=== PATIENT | female | born 1950 | race Caucasian/White ===

== ENCOUNTER 2020-04-25 13:01 | Outpatient (CLI) | payer MEDICARE, SELFPAY ==
[2020-04-25 16:09] LABS: Alanine Aminotransferase 13 U/L (4-35); Albumin Level 3.6 g/dL (3.5-5.1); Alkaline Phosphatase 101 U/L (38-126); Anion Gap 8 mmol/L (8-16); Aspartate Amino Transferase 21 U/L (14-36); Bilirubin,Total 0.3 mg/dL (0.2-1.3); Blood Urea Nitrogen 32 mg/dL (7-17); Calcium 8.9 mg/dL (8.4-10.2); Carbon Dioxide 26 mmol/L (22-30); Chloride 108 mmol/L (98-107); Cholesterol 249 mg/dL (0-200); Estimated Glomerular Filt Rate 23; Glucose 108 mg/dL (65-105); HDL Direct 42 mg/dL; Potassium 4.6 mmol/L (3.4-5.0); Sodium 142 mmol/L (137-145); Triglycerides 199 mg/dL (<150)
[2020-04-25 16:20] LABS: LDL Cholesterol Direct 157 mg/dL
[2020-04-25 16:24] LABS: Hemoglobin A1C 6.2 % (<5.7)
== END 2020-04-25 13:02 | disposition home or self-care (01) ==
LOC: ANHLAB 13:05
PROVIDERS: PCP Emergency Medicine; Visit Provider Emergency Medicine
DX: R35.0 Frequency of micturition (principal); E78.5 Hyperlipidemia, unspecified; E11.9 Type 2 diabetes mellitus without complications
CPT/HCPCS: 36415; 80053; 80061; 83036; 87086; 87088; 87106; 87186

== ENCOUNTER 2020-05-09 10:41 | Outpatient (CLI) | payer MEDICARE, SELFPAY ==
--- NOTE | ~2020-05-09 | XR_ITS ---
XR abdomen/kub 1V 05/09/2020 10:59 Indication: Kidney stones Procedure: KUB Comparison: No prior studies for comparison. Findings: Bowel gas pattern is nonobstructive. There are surgical changes in the mid lumbar spine. Mo derate lumbar spondylosis. There is a round calcification overlying the L5 transverse process on the left, likely a phlebolith or lymph node calcification rather than ureteral stone. There is an oval ca lcific density overlying the right ilium, likely bowel content or appendicolith. Moderate degenerativ e changes of the hips. No acute osseous abnormality. Impression: 1: No definite nephrolithiasis. No acute abdominal abnormality. Reviewed, dictated and finalized at location B. Impression: 1: No definite nephrolithiasis. No acute abdominal abnormality.
== END 2020-05-09 10:42 | disposition home or self-care (01) ==
PROVIDERS: PCP Emergency Medicine; Visit Provider Urology
DX: Z87.442 Personal history of urinary calculi (principal)
CPT/HCPCS: 74018

== ENCOUNTER → 2020-05-30 09:43 | Outpatient (CLI) | payer MEDICARE, SELFPAY ==
--- NOTE | ~2020-05-30 | XR_ITS ---
XR lumbar spine 6V w bending DATE: 05/30/2020 10:35 INDICATION: Low back pain TECHNIQUE: Standing AP, neutral lateral and flexion and extension lateral and coned lateral lumbosacr al views. Bilateral supine oblique views. COMPARISON: 06/09/2020 CT lumbar spine FINDINGS: There is severe degenerative disc disease with eburnation, spurring at T10-11. There is mild levoscoliosis of the thoracolumbar spine. There is severe degenerative disc disease with prominent urination, spurring and vacuum phenomenon at L1-2. There is a right L2 pars interarticularis defect. There is grade 1 anterolisthesis at L2-3. There is posterior spinal fusion at L3-4; the hardware appears intact. Moderately severe degenerative disc disease at L3-4. There is anterior fusion at L4-5. There is severe degenerative change at the apophyseal joints. No other fracture or bone destruction is detected. The sacroiliac joints are intact. There is extensive calcification of the abdominal aorta, without apparent aneurysm. IMPRESSION: Status post posterior spinal fusion at L3-4 Severe degenerative disc disease at T10-11 and particularly at L1-2 Moderately severe degenerative disc disease at L3-4 Fusion at L4-5 anteriorly Right L2 pars interarticularis defect with grade 1 anterolisthesis at L2-3 Reviewed, dictated and finalized at location A. [employer] COMM[employer]ICATION[employer] MANAGER
--- NOTE | ~2020-05-30 | XR_ITS ---
EXAMINATION: XR hip RT min 2V DATE: 05/30/2020 10:35 INDICATION: Right hip pain. TECHNIQUE: 2 views of right hip were obtained. COMPARISON: None. FINDINGS: Bone alignment is normal. No fracture. There is moderate right hip osteoarthritis. There ar e changes of posterior fusion procedure in lumbar spine. IMPRESSION: 1. Moderate right hip osteoarthritis. Reviewed, dictated and finalized at location B. DESIGNER
--- NOTE | ~2020-05-30 | CT_ITS ---
EXAMINATION: CT lumbar spine wo con DATE: 05/30/2020 10:31 INDICATION: Low back pain. TECHNIQUE: Computed tomography (CT) of the lumbar spine was performed without intravenous contrast. A utomated exposure control and iterative reconstruction technique were employed. The dose-length produ ct was 924.30 mGy-cm. COMPARISON: None FINDINGS: There is a 1.6 cm mass in left adrenal gland measuring low-attenuation, consistent with an adenoma. There is bilateral hydronephrosis and hydroureter. The bladder is distended. There is 6 degr ees levocurvature of lumbar spine. There is 3 mm anterolisthesis of L2 on L3 and L4 on L5. Vertebral body heights are normal. There are changes of posterior fusion procedure at L3-L4 with pedicle screws . There is severely decreased disc height at L1-L2 and moderately decreased disc height at L2-L3. The re is a chronic right L2 pars defect. There is severely decreased disc height at L3-L4 and L4-L5 with interbody fusion. The following disc levels are specifically discussed: L1-L2: The disc is bulging with vacuum disc phenomenon. There is severe bilateral facet joint osteoar thritis. There is moderate bilateral neural foraminal stenosis. There is mild central canal stenosis. L2-L3: The disc is bulging. There is severe bilateral facet joint osteoarthritis. There is mild right and moderate left neural foraminal stenosis. There is mild central canal stenosis. L3-L4: There is ankylosis of the facet joints with mild hypertrophy. There is mild lateral neural for aminal stenosis. There is mild central canal stenosis with posterior decompression. L4-L5: There is ankylosis of the facet joints with severe hypertrophy. There is moderate bilateral ne ural foraminal stenosis. There is mild central canal stenosis with posterior decompression. L5-S1: The disc is mildly bulging. There is severe bilateral facet joint osteoarthritis. There is mil d bilateral neural foraminal stenosis. There is no central canal stenosis. IMPRESSION: 1. Severe lumbar spondylosis. 2. Chronic right L2 pars defects with grade 1 anterolisthesis of L2 on L3. 3. Anterior and posterior fusion from L3 to L5 with posterior instrumentation at L3-L4. 4. Bilateral hydronephrosis and hydroureter, partially visualized. Reviewed, dictated and finalized at location B. [employer] IMPRESSION: 1. Severe lumbar spondylosis. 2. Chronic right L2 pars defects with grade 1 anterolisthesis of L2 on L3. 3. Anterior and posterior fusion from L3 to L5 with posterior instrumentation a t L3-L4. 4. Bilateral hydronephrosis and hydroureter, partially visualized.
== END ==
PROVIDERS: PCP Emergency Medicine; Visit Provider Nurse Practitioner Adult Health
DX: Z98.1 Arthrodesis status (principal); M51.36 Other intervertebral disc degeneration, lumbar region; M51.34 Other intervertebral disc degeneration, thoracic region; M47.26 Other spondylosis with radiculopathy, lumbar region; M16.11 Unilateral primary osteoarthritis, right hip
CPT/HCPCS: 72114; 72131; 73502

== ENCOUNTER 2020-06-30 11:11 | Outpatient (CLI) | payer MEDICARE, SELFPAY ==
--- NOTE | ~2020-06-30 | MR_ITS ---
EXAMINATION: MR hip RT wo con DATE: 06/30/2020 12:38 INDICATION: Benign lipomatous neoplasm, unspecified. Right groin pain. TECHNIQUE: Magnetic resonance imaging (MRI) of the right hip was performed without intravenous contra st. Sequences included coronal T2-weighted FSE, coronal PD-weighted FS FSE, axial T1-weighted FSE, ax ial T2-weighted FS FSE, small [id number] coronal T2-weighted FSE and PD-weighted FS FSE, radial T1 -weighted STIR, and postcontrast small [id number] axial and sagittal T1-weighted FS FSE. COMPARISON: Right hip radiographs 05/30/2020 FINDINGS: Bones/cartilage: Bone alignment is normal. No fracture. There are changes of posterior fusion procedure in lumbar spin e. There is moderate osteoarthritis of the hips. Small [id number] images of the right hip demonstr ates deep partial thickness cartilage loss, marginal osteophytes. There is subchondral edema in the a nterior right femoral head. Labrum: There is a tear of the right acetabular labrum. Fluid: There is no hip joint effusion. Soft tissues: The gluteal tendons and iliopsoas tendons are normal. There is moderate tendinopathy of the hamstring origins bilaterally. Partially visualized is bilateral hydronephrosis and hydroureter. IMPRESSION: 1. Moderate osteoarthritis of the hips. 2. Bilateral hydronephrosis and hydroureter again seen. Reviewed, dictated and finalized at location B. ULATION LIBRARIAN
== END 2020-06-30 11:12 | disposition home or self-care (01) ==
LOC: ANHIMG 11:12
PROVIDERS: PCP Emergency Medicine; Visit Provider Emergency Medicine
DX: D17.9 Benign lipomatous neoplasm, unspecified (principal); M16.11 Unilateral primary osteoarthritis, right hip
CPT/HCPCS: 73721